=== PATIENT | male | born 1950 ===

== ENCOUNTER 2018-06-14 07:56 | Outpatient (CLI) | payer BC ==
--- NOTE | 2018-06-14 09:36 | ULT ---
SOFT TISSUE ULTRASOUND: INDICATION: Edema. TECHNIQUE: Hess scale and Doppler flow imaging performed. FINDINGS: There is an oval-shaped, encapsulated hyperechoic mass approximately 5.7 cm in length x 1.6 cm in per pendicular dimension. No significant internal flow is documented. IMPRESSION: Circumscribed mass demonstrating echogenicity similar to fat. This favors a lipoma. For more defini tive assessment, recommend followup with dedicated pre- and postcontrast MRI. POS: [facility]
== END 2018-06-14 07:57 | disposition home or self-care (01) ==
LOC: SCSULT 07:56
PROVIDERS: ATTEND Family Medicine
DX: R60.0 Localized edema (principal); R22.2 Localized swelling, mass and lump, trunk
CPT/HCPCS: 76999

== ENCOUNTER 2018-09-20 11:53 | Outpatient (CLI) | payer BC, MEDICARE ==
--- NOTE | 2018-09-20 13:25 | RAD ---
THORACIC SPINE THREE VIEWS: HISTORY: Fall. Pain. COMPARISON: None. FINDINGS: Thoracic spine vertebral body height is maintained. There is no fracture. Mild loss of disk space h eight and osteophyte formation. IMPRESSION: No fracture. POS: [facility]
--- NOTE | 2018-09-20 13:34 | RAD ---
2 VIEWS LUMBAR SPINE: Date: 09/20/18 HISTORY: Fall. Pain. COMPARISON: None. FINDINGS: Five lumbar-type vertebral bodies. Vertebral body height is maintained. No fracture. Disc space heigh ts are preserved. Vascular calcifications are noted. IMPRESSION: No fracture. POS: [facility]
== END 2018-09-20 11:54 | disposition home or self-care (01) ==
LOC: SCSRAD 11:53
PROVIDERS: ATTEND Family Medicine
DX: M54.6 Pain in thoracic spine (principal)
CPT/HCPCS: 72072; 72100

== ENCOUNTER 2019-09-03 16:34 | Outpatient (CLI) | payer BC, MEDICARE ==
--- NOTE | 2019-09-03 17:41 | RAD ---
XR Lumbar Spine 2 Or 3 View History: Fall. Pain. Comparison: Radiograph August 2018 Findings: High-grade calcifications of the splenic artery. No acute fracture of the lumbar spine. Mod erate narrowing of the L3-4 disc space. Moderate facet arthropathy L3-S1. No abnormal listhesis. No significant change from the comparison examination. Moderate vascular calcifications of the aorta and iliac vessels. Impression: Moderate degenerative change. No acute abnormality.
--- NOTE | 2019-09-03 17:43 | RAD ---
XR Ribs Rt>=2 view STANDARD History: R07.81. Fall. Chest pain. Comparison: None. Findings: Moderate layering right pleural effusion. Thickening of the right minor and major fissure. Nondisplaced right lateral seventh rib fracture. Impression: Nondisplaced right lateral seventh rib fracture with moderate effusion which does appear chronic.
--- NOTE | 2019-09-03 17:44 | RAD ---
XR Sacrum and Coccyx STANDARD History: M 54.5. Fall Comparison: None. Findings: High-grade vascular calcifications. SI joints are unremarkable as well as the pubic symphys is. Moderate stool burden within the rectum. No displaced sacral fracture appreciated. Impression: No displaced fracture appreciated.
--- NOTE | 2019-09-03 17:49 | RAD ---
2 views left hip: 09/03/2019 COMPARISON: None HISTORY: Fall, pain FINDINGS: There is no displaced fracture or evidence of dislocation. There is extensive vascular calc ification within the imaged pelvis and left thigh. No acute findings. Mild superior joint space narrowing and lateral acetabular osteophyte formation. IMPRESSION: No displaced fracture or evidence of dislocation seen.
== END 2019-09-03 16:35 | disposition home or self-care (01) ==
LOC: SCSRAD 16:34
PROVIDERS: ATTEND Family Medicine
DX: M25.552 Pain in left hip (principal); M54.5 Low back pain; R07.81 Pleurodynia; S22.31XA Fracture of one rib, right side, initial encounter for closed fracture; J90 Pleural effusion, not elsewhere classified; M47.816 Spondylosis without myelopathy or radiculopathy, lumbar region
CPT/HCPCS: 72100; 72220